=== PATIENT | female | born 1945 | race Caucasian/White ===

== ENCOUNTER 2021-03-04 06:01 | Inpatient (IN) ==
[2021-03-04] MEDS ORDERED: Vancomycin 1,500 MG/265 ML IV.SOLN IVPB ONE (06:24)
[2021-03-04] MEDS ORDERED: Ringers Solution, Lactated 1,000 ML IVC SCH (06:30)
[2021-03-04] MEDS ORDERED: *HR* Propofol 200 MG/20 ML VIAL IVP ONE (06:33)
[2021-03-04] MEDS ORDERED: Lidocaine -MPF 2% 5 ML VIAL ONE ×2 (06:38→11:38)
[2021-03-04] MEDS ORDERED: *HR* Succinylcholine 200 MG/10 ML VIAL IVP ONE (06:38)
[2021-03-04] MEDS ORDERED: *HR* Rocuronium Bromide 50 MG/5 ML VIAL ONE ×3 (06:38→10:50)
[2021-03-04] MEDS ORDERED: *HR* Heparin 5,000 UNIT/ML VIAL ONE (06:38)
[2021-03-04] MEDS ORDERED: Ondansetron 4 MG/2 ML VIAL ONE (06:38)
[2021-03-04] MEDS ORDERED: *HR* Midazolam HCl 2 MG/2 ML VIAL ONE (06:41)
[2021-03-04] MEDS ORDERED: *HR* FentaNYL (PF) 100 MCG/2 ML VIAL ONE ×2 (06:42→11:03)
[2021-03-04] MEDS ORDERED: EPINEPHrine 1 MG/ML VIAL ONE ×2 (06:51→07:24)
[2021-03-04] MEDS ORDERED: *HR* Phenylephrine 10 MG/ML VIAL ONE (06:51)
[2021-03-04] MEDS ORDERED: Heparin 1,000 UNITS/500 mL 500 ML ONE (07:05)
[2021-03-04] MEDS ORDERED: Heparin 1,000 UNITS/500 mL 1,000 ML ONE (07:05)
[2021-03-04] MEDS ORDERED: Bupivacaine-MPF 0.25% 10 ML VIAL ONE (07:05)
[2021-03-04] MEDS ORDERED: Vancomycin 1,000 MG VIAL ONE (07:05)
[2021-03-04] MEDS ORDERED: *HR* Norepinephrine 4 MG/4 ML VIAL IVC ONE ×2 (07:12→07:15)
[2021-03-04] MEDS ORDERED: niCARdipine 0 MG/0 ML MLS IVC ONE (07:14)
[2021-03-04] MEDS ORDERED: NiCARdipine 2.5 MG/10 ML Syringe IVPB ONE (07:14)
[2021-03-04] MEDS ORDERED: CeFAZolin Syr 2,000MG/20 ML 2,000 MG/20 ML SYRINGE IVPB ONE (07:32)
[2021-03-04] MEDS ORDERED: *HR* Vasopressin 20 UNIT/ML VIAL ONE (07:37)
[2021-03-04] MEDS ORDERED: Albumin Human 5% 25.0 GM/500 ML IV.SOLN ONE (07:37)
[2021-03-04] MEDS ORDERED: Vancomycin 1,000 MG, Sodium Chloride IRRigation 1,000 ML IR ONE (07:45)
[2021-03-04] MEDS ORDERED: Promethazine 6.25 MG in Water for inj. (sterile) 20 ML IVPB PRN (07:53)
[2021-03-04] MEDS ORDERED: Ondansetron 4 MG/2 ML VIAL IVP PRN ×2 (07:53→13:48)
[2021-03-04] MEDS ORDERED: *HR* HYDROmorphone PF 0.5 MG/0.5 ML SYRINGE IVP PRN (07:53)
[2021-03-04] MEDS ORDERED: *HR* OxyCODONE Immed Rel 5 MG TABLET PO PRN (07:53)
[2021-03-04 09:08] LABS: ABG Base Excess -2 mEq/L (-2 to 3); ABG Chloride 107 mEq/L (98-107); ABG Glucose 118 mg/dL (60-95); ABG HCO3 22 mEq/L (21-27); ABG Ionized Calcium 1.14 mmol/L (1.15-1.35); ABG Oxygen Saturation 100 % (95-98); ABG PCO2 33 mmHg (35-45); ABG PH 7.44 pH Units (7.32-7.45); ABG PO2 188 mmHg (85-104); ABG TCO2 23 mEq/L (20-26)
[2021-03-04] MEDS ORDERED: EPHEDrine 50 MG/ML VIAL ONE (09:35)
[2021-03-04] MEDS ORDERED: Sugammadex Sodium 200 MG/2 ML VIAL IV ONE (11:27)
[2021-03-04 11:49] LABS: ABG Base Excess -6 mEq/L (-2 to 3); ABG Chloride 109 mEq/L (98-107); ABG Glucose 242 mg/dL (60-95); ABG HCO3 20 mEq/L (21-27); ABG Ionized Calcium 1.39 mmol/L (1.15-1.35); ABG Oxygen Saturation 100 % (95-98); ABG PCO2 40 mmHg (35-45); ABG PO2 271 mmHg (85-104); ABG TCO2 21 mEq/L (20-26)
[2021-03-04] MEDS ORDERED: Naloxone 0.4 MG/ML INJ IVP PRN (13:48)
[2021-03-04] MEDS ORDERED: *HR* Labetalol 20 MG/4 ML SYRINGE IVP PRN (13:48)
[2021-03-04] MEDS ORDERED: CeFAZolin 2 GM/120 ML BAG IVPB SCH (14:00)
[2021-03-04] MEDS: 0.9 % Sodium Chloride 1,000 ML IVC SCH (14:08)
[2021-03-04] MEDS: CeFAZolin 2 GM/120 ML BAG IVPB SCH ×2 (15:51→23:16)
[2021-03-04] MEDS: *HR* Metoprolol 5 MG/5 ML VIAL IVP SCH ×2 (18:04→23:19)
[2021-03-05 04:03] LABS: VBG Ionized Calcium 1.14 mmol/L (1.15-1.35)
[2021-03-05 04:12] LABS: Basophils % 0.2 %; Hematocrit 32.2 % (35.3-44.9); Immature Granulocytes % 0.3 % (0-4); Lymphocytes % 6.4 %; Mean Corpuscular HGB Conc 33.2 g/dL (31.6-35.5); Mean Corpuscular Volume 96.4 fL (83.0-100.0); Mean Platelet Volume 12.8 fL (9.4-12.4); Monocytes % 10.1 %; Neutrophils # 13.5 K/mcL (1.6-8.9); Platelet Count 108 K/mcL (140-400); Red Blood Count 3.34 M/mcL (3.82-4.97); Red Cell Distribution Width 13.1 % (11.5-14.5)
[2021-03-05 04:13] LABS: Hemoglobin 10.7 g/dL (11.5-15.4); Monocytes # 1.7 K/mcL (0.0-1.3); White Blood Count 16.3 K/mcL (4.3-11.1)
[2021-03-05 04:21] LABS: Calcium 7.7 mg/dL (8.6-10.3); Potassium 3.8 mEq/L (3.5-5.1)
[2021-03-05] MEDS: 0.9 % Sodium Chloride 1,000 ML IVC SCH ×3 (05:42→16:08)
[2021-03-05] MEDS: *HR* Metoprolol 5 MG/5 ML VIAL IVP SCH ×3 (05:50→17:59)
[2021-03-05] MEDS ORDERED: Calcium Gluconate 1gm/50mL 1 GM/50 ML BAG IVPB PRN (07:49)
[2021-03-05] MEDS ORDERED: Potassium Phosphate 44 MEQ in 0.9 % Sodium Chloride 250 ML IVPB PRN (07:49)
[2021-03-05 08:24] LABS: Magnesium 1.4 mg/dL (1.6-2.6); Phosphorous 4.4 mg/dL (2.7-4.5)
[2021-03-05] MEDS ORDERED: *HR* Heparin 5,000 UNIT/ML VIAL SQ SCH (18:00)
[2021-03-05 18:41] LABS: Magnesium 1.9 mg/dL (1.6-2.6); Potassium 3.8 mEq/L (3.5-5.1)
[2021-03-05] MEDS ORDERED: Ondansetron 4 MG/2 ML VIAL IVP PRN (19:25)
[2021-03-05] MEDS ORDERED: *HR* Labetalol 20 MG/4 ML SYRINGE IVP PRN (19:25)
[2021-03-05] MEDS ORDERED: Naloxone 0.4 MG/ML INJ IVP PRN (19:25)
[2021-03-05] MEDS ORDERED: 0.9 % Sodium Chloride 1,000 ML IVC SCH (19:25)
[2021-03-06] MEDS: *HR* Metoprolol 5 MG/5 ML VIAL IVP SCH ×4 (00:20→18:43)
[2021-03-06 05:11] LABS: VBG Ionized Calcium 1.07 mmol/L (1.15-1.35)
[2021-03-06 05:28] LABS: Basophils % 0.1 %; Hematocrit 28.1 % (35.3-44.9); Hemoglobin 9.2 g/dL (11.5-15.4); Immature Granulocytes % 0.5 % (0-4); Lymphocytes # 1.2 K/mcL (0.6-4.6); Lymphocytes % 7.4 %; Mean Corpuscular HGB Conc 32.7 g/dL (31.6-35.5); Mean Corpuscular Hemoglobin 32.2 pg (28.0-33.3); Mean Corpuscular Volume 98.3 fL (83.0-100.0); Mean Platelet Volume 12.7 fL (9.4-12.4); Monocytes # 1.7 K/mcL (0.0-1.3); Monocytes % 10.4 %; Neutrophils # 13.4 K/mcL (1.6-8.9); Platelet Count 108 K/mcL (140-400); Red Blood Count 2.86 M/mcL (3.82-4.97); Red Cell Distribution Width 13.8 % (11.5-14.5); Segmented Neutrophils % 81.6 %; White Blood Count 16.4 K/mcL (4.3-11.1)
[2021-03-06 05:33] LABS: BUN/Creatinine Ratio 17 (6-26); Blood Urea Nitrogen 17 mg/dL (8-23); Calcium 7.6 mg/dL (8.6-10.3); Carbon Dioxide 25 mEq/L (23-29); Chloride 112 mEq/L (98-107); Glucose 135 mg/dL (70-105); Magnesium 1.9 mg/dL (1.6-2.6); Osmolality,Calculated 298 (280-300); Phosphorous 2.5 mg/dL (2.7-4.5); Potassium 3.8 mEq/L (3.5-5.1); Sodium 142 mEq/L (136-145); eGFR For African Americans > 60 (> 60); eGFR For Non-African Americans 55 (> 60)
[2021-03-06] MEDS: Calcium Gluconate 1gm/50mL 1 GM/50 ML BAG IVPB PRN (06:12)
[2021-03-06] MEDS: Potassium Phosphate 44 MEQ in 0.9 % Sodium Chloride 250 ML IVPB PRN ×2 (06:18→19:13)
[2021-03-06] MEDS ORDERED: Bisacodyl 10 MG RECTAL SUPPOSITORY RC ONE (09:16)
[2021-03-06] MEDS ORDERED: Furosemide 20 MG/2 ML VIAL IVP ONE (09:20)
[2021-03-06] MEDS: D5% in 0.45% NACL w KCl 20 MEQ/1,000 ML MLS IVC SCH (10:06)
[2021-03-07] MEDS: *HR* Metoprolol 5 MG/5 ML VIAL IVP SCH ×5 (01:51→22:57)
[2021-03-07] MEDS: D5% in 0.45% NACL w KCl 20 MEQ/1,000 ML MLS IVC SCH ×2 (05:38→23:01)
[2021-03-07 06:37] LABS: BUN/Creatinine Ratio 18 (6-26); Blood Urea Nitrogen 16 mg/dL (8-23); Calcium 7.7 mg/dL (8.6-10.3); Carbon Dioxide 25 mEq/L (23-29); Chloride 110 mEq/L (98-107); Glucose 127 mg/dL (70-105); Osmolality,Calculated 295 (280-300); Sodium 141 mEq/L (136-145); eGFR For African Americans > 60 (> 60); eGFR For Non-African Americans > 60 (> 60)
[2021-03-07 06:44] LABS: Phosphorous 2.9 mg/dL (2.7-4.5)
[2021-03-07 06:54] LABS: Basophils % 0.3 %; Eosinophils % 0.2 %; Hematocrit 28.5 % (35.3-44.9); Immature Granulocytes % 0.4 % (0-4); Lymphocytes # 1.3 K/mcL (0.6-4.6); Lymphocytes % 9.3 %; Mean Corpuscular HGB Conc 31.6 g/dL (31.6-35.5); Mean Corpuscular Hemoglobin 31.6 pg (28.0-33.3); Mean Platelet Volume 12.6 fL (9.4-12.4); Monocytes # 1.4 K/mcL (0.0-1.3); Neutrophils # 10.8 K/mcL (1.6-8.9); Platelet Count 122 K/mcL (140-400); Red Blood Count 2.85 M/mcL (3.82-4.97); Red Cell Distribution Width 13.7 % (11.5-14.5); Segmented Neutrophils % 79.8 %; White Blood Count 13.6 K/mcL (4.3-11.1)
[2021-03-08] MEDS: *HR* Metoprolol 5 MG/5 ML VIAL IVP SCH ×3 (03:52→17:34)
[2021-03-08 04:36] LABS: VBG Ionized Calcium 1.09 mmol/L (1.15-1.35)
[2021-03-08 04:53] LABS: Potassium 3.8 mEq/L (3.5-5.1)
[2021-03-08] MEDS: Calcium Gluconate 1gm/50mL 1 GM/50 ML BAG IVPB PRN (05:51)
[2021-03-08] MEDS ORDERED: Furosemide 20 MG/2 ML VIAL IVP ONE (07:03)
[2021-03-08] MEDS ORDERED: Acetaminophen 325 MG TABLET PO PRN (07:14)
[2021-03-08] MEDS ORDERED: *HR* OxyCODONE Immed Rel 5 MG TABLET PO PRN (07:14)
[2021-03-08] MEDS: *HR* HYDROcodone/Acet 5/325 mg TABLET PO PRN (08:42)
[2021-03-08] MEDS: *HR* Heparin 5,000 UNIT/ML VIAL SQ SCH ×2 (08:43→16:57)
[2021-03-08] MEDS: Potassium Phosphate 44 MEQ in 0.9 % Sodium Chloride 250 ML IVPB PRN (08:55)
[2021-03-08 17:09] LABS: Magnesium 1.8 mg/dL (1.6-2.6); Phosphorous 3.5 mg/dL (2.7-4.5); Potassium 4.4 mEq/L (3.5-5.1)
[2021-03-08] MEDS ORDERED: Mag Hydrox/Al Hydrox/Simeth 30 ML UDC PO PRN (18:57)
[2021-03-09] MEDS: *HR* Metoprolol 5 MG/5 ML VIAL IVP SCH ×3 (00:03→12:38)
[2021-03-09] MEDS: *HR* HYDROcodone/Acet 5/325 mg TABLET PO PRN (00:11)
[2021-03-09 02:18] LABS: VBG Ionized Calcium 1.06 mmol/L (1.15-1.35)
[2021-03-09] MEDS: Calcium Gluconate 1gm/50mL 1 GM/50 ML BAG IVPB PRN (03:48)
[2021-03-09] MEDS: *HR* Heparin 5,000 UNIT/ML VIAL SQ SCH (05:04)
[2021-03-09 12:51] VITALS: BP 140/59; PULSE 59; TEMP 98.5; O2SAT 96
== END 2021-03-09 14:43 | disposition home or self-care (01) | DRG 269 ==
LOC: SAMDAY 06:01 → ICNU 13:23 → 2NNU 03-05 19:11
PROVIDERS: ADMIT Surgery; ATTEND Surgery